=== PATIENT | male | born 1980 | race Caucasian/White ===

== ENCOUNTER 2017-05-16 18:41 | Emergency (ER) | payer OTHER ==
[~2017-05-16] VITALS: Ht 185.4 cm; Wt 125.0 kg
[~2017-05-16 18:41] MED LIST: ADULT LOW DOSE81 M1 PO; AMOX TR-K CLV1 EAC2 PO; AMOXICILLIN875 MG PO; ANUSOL-HC25 MG/SUPP RC; AUGMENTIN 875-1 EAC2 PO; BP PILL; COMPAZINE10 M PO; GLIPIZIDE ER10 M1 PO; GLIPIZIDE ER10 MG PO; GLIPIZIDE PO; GLUCOPHAGE500 MG PO; GLUCOTROL XL5 MG PO; IBUPROFEN400 M1 PO; LISINOPRIL PO; LISINOPRIL10 MG PO; LOFIBRA160 M1 PO; METFORMIN HCL500 PO; METFORMIN PO; MICONAZOLE NITR30 G2 TOP; NORCO 10/325 TA1 TAB PO; NORCO 5-325 TA1 EACH PO; NORCO 5/325 TAB1 TAB PO; NORCO 7.5/325 T1 TAB PO; PEN-VEE K500 MG PO; PERCOCET 5/3251 TAB PO; PHENTERMINE H37.5 M1 PO; PRINIVIL5 M1 PO; SKELAXIN800 MG PO; SULFAMYLON60 GM TOP; TERBINAFINE15 GM TOP; TRAMADOL HCL50 MG PO; TUMS500 MG; VIBRAMYCIN100 M1 PO; VITAMIN D250000 UNI1 PO
[2017-05-16] MEDS ORDERED: ERYTHROMYCIN1 GM OP (20:46)
== END 2017-05-16 21:06 ==
LOC: EDMED 18:41
DX: T15.02XA Foreign body in cornea, left eye, initial encounter (principal); Z88.1 Allergy status to other antibiotic agents